=== PATIENT | female | born 2000 | race Caucasian/White ===

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

== ENCOUNTER 2020-02-21 19:23 | Emergency (ER) | payer MEDICAID, SELFPAY ==
[2020-02-21 19:30] VITALS: BP 145/89; PULSE 91; RESP 18; TEMP 36.6; O2SAT 98; BMI 32.1
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
[2020-02-21 19:53] VITALS: BP 145/89; PULSE 91; RESP 18; TEMP 36.6; O2SAT 98
== END 2020-02-21 19:55 | disposition home or self-care (01) ==
PROVIDERS: Emergency Provider Nurse Practitioner
DX: Z20.828 Contact with and (suspected) exposure to other viral communicable diseases (principal)
CPT/HCPCS: 99201; U0003

== ENCOUNTER 2020-11-22 15:36 | Emergency (ER) | payer MEDICAID, SELFPAY ==
[2020-11-22 16:15] VITALS: BP 138/77; PULSE 78; RESP 18; TEMP 37; O2SAT 100; BMI 35.2
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
--- NOTE | 2020-11-22 18:12 | PC.NURSE ---
Pt come to nurses station and stated that she wanted her d/c papers and was ready to leave. Pt signed out AMA
[2020-11-22 18:23] VITALS: BP 0/0; PULSE 0; RESP 0; TEMP -17.7; TEMP 0; O2SAT 0
== END 2020-11-22 18:25 | disposition left against medical advice (07) ==
PROVIDERS: Emergency Provider Nurse Practitioner Family
DX: S13.4XXA Sprain of ligaments of cervical spine, initial encounter (principal); S23.3XXA Sprain of ligaments of thoracic spine, initial encounter; V43.52XA Car driver injured in collision with other type car in traffic accident, initial encounter; Y92.414 Local residential or business street as the place of occurrence of the external cause
CPT/HCPCS: 99202; G0463

== ENCOUNTER 2021-02-09 15:57 | Emergency (ER) | payer MEDICAID, SELFPAY ==
[2021-02-09 17:25] VITALS: BP 129/84; PULSE 107; RESP 18; TEMP 37.3; O2SAT 100; BMI 34.0
--- NOTE | 2021-02-09 17:34 | HMH.EDUTC ---
[facility] [place] Disposition Clinical Impression: Viral syndrome, Exposure to COVID-19 virus Disposition: Home, Self-Care Condition on Discharge: Good Instructions: DI for COVID-19 (Suspected or Confirmed ), Preventing the Spread of Coronavirus Discharge Instructions Additional Instructions: Drink plenty of fluids. Take tylenol or ibuprofen for pain or fever. Take the medications as directed. Follow up with your regular doctor. GO TO THE ER FOR ANY WORSENING SYMPTOMS Quarantine until you know the results of your covid-19 test. If it is positive, the health department should call you and give you further instructions about your length of Quarantine and other things. Notify your school or workplace of your results and follow their instructions regarding return to work/school. Prescriptions: Brompheniramine/Pseudoephed/Dm [Bromfed Dm Cough Syrup] 5 ml PO Q6HP PRN #240 ml PRN Reason: Cough Transmission Status: Received by [id number] Ondansetron [Zofran 4mg ODT] 4 mg PO Q8HP PRN #12 tab PRN Reason: Nausea Transmission Status: Received by [id number] Referrals: Provider,Referral, [Primary Care Provider] - Forms: Work/School Release Time of Disposition: 18:11 Medical Decision Making - Medical Records Medical records reviewed: No: I reviewed the patient's medical records. - Tadeo Inquiry Pt receiving controlled substance: No Vital Signs: 02/09/21 17:25 02/09/21 18:05 Temperature 99.1 F 99.1 F Temperature Source Oral Pulse Rate 107 H Pulse Rate [Left] 107 H Respiratory Rate 18 18 Blood Pressure 129/84 Blood Pressure [Right Arm] 129/84 Blood Pressure Mean [Right Arm] 99 02 Sat by Pulse Oximetry 100 - Lab Data Lab results reviewed: Yes: I reviewed the patient's lab results. Lab Results 02/09/21 18:03: Strep Scn Rapid Clinic Negative Orders (Tests/Meds): ORDERS Category Date Time Status Covid-19 Nasal PCR ([facility]) Routine Lab 02/09/21 17:26 Received Strep Screen Confirmation Stat Micro 02/09/21 18:03 Received [facility] HPI - General Stated complaint: covid symptoms/test Time Seen by Provider: 02/09/21 17:34 Mode of Arrival: Ambulatory Source of Information: Patient Limitations: No Limitations Description of Symptoms (Recalled from Triage Doc. by RN): pt c/o nasal drainage and soa. HEENT Symptoms (Recalled from RN notes): Yes (nasal drainage) Resp Symptoms (Recalled from RN notes): No Skin Symptoms (Recalled from RN notes): No MS Symptoms (Recalled from RN notes): No Functional Status (Recalled from RN notes): wnl - History of Present Illness Provider Complaint: She states that she has felt bad since last night. She has had body aches, fever, chills, sore throat and nausea. She was exposed to covid-19 about 5 days ago. She has not been vaccinated against covid-19. - Related Data Previous Rx's Medication Instructions Recorded Brompheniramine/Pseudoephed/Dm 5 ml PO Q6HP PRN #240 ml 02/09/21 [Bromfed Dm Cough Syrup] Ondansetron [Zofran 4mg ODT] 4 mg PO Q8HP PRN #12 tab 02/09/21 Allergies Allergy/AdvReac Type Severity Reaction Status Date / Time No Known Allergies Allergy Verified 04/11/19 12:38 - Worker's Comp Is this a Worker's Comp case?: No [facility] History - Hepatitis A Screen Drug use history?: No High risk sexual behaviors?: No History of sexually transmitted infection?: No Currently employed?: No Childcare worker?: No Do you have indoor plumbing?: Yes Do you have electricity?: Yes Attestation statement:: This patient has been screened for Hepatitis A risk factors. I have reviewed the patient's past medical history: Yes Medical History: Reports:: Migraine Denies:: Anxiety, Asthma, Depression, Seizures Other Surgeries: Yes: No Previous Surgery Amputation: No Fractures: No - Social History Smoking Status: Former smoker Tobacco Type: smokeless tobacco Alcohol Intake: never Substance Use Type: denies use
[2021-02-09 18:04] LABS: UTC Strep Screen (Rapid) Negative (Negative)
[2021-02-09 18:05] VITALS: BP 129/84; PULSE 107; RESP 18; TEMP 37.3
== END 2021-02-09 18:15 | disposition home or self-care (01) ==
PROVIDERS: Emergency Provider Nurse Practitioner Family
DX: B34.9 Viral infection, unspecified (principal); Z20.822 Contact with and (suspected) exposure to COVID-19; G43.709 Chronic migraine without aura, not intractable, without status migrainosus
CPT/HCPCS: 87880; 99203; C9803; G0463; U0003; U0005

== ENCOUNTER → 2021-03-26 11:46 | Outpatient (CLI) | payer MEDICAID, SELFPAY | PROVIDERS: Visit Provider Nurse Practitioner | DX: U07.1 COVID-19 (principal) | CPT/HCPCS: C9803; U0003; U0005 ==

== ENCOUNTER 2021-10-04 14:25 | Emergency (ER) | payer MEDICAID, SELFPAY ==
[2021-10-04 14:42] VITALS: BP 130/53; PULSE 64; RESP 17; TEMP 37.2; O2SAT 96; BMI 31.2
--- NOTE | 2021-10-04 14:44 | HMH.EDUTC ---
[facility] [place] Disposition Clinical Impression: Exposure to COVID-19 virus, Viral syndrome Disposition: Home, Self-Care Condition on Discharge: Good Instructions: DI for COVID-19 (Suspected or Confirmed ), Preventing the Spread of Coronavirus Discharge Instructions Additional Instructions: Drink plenty of fluids. Take tylenol or ibuprofen for pain or fever. Take the medications as directed. Follow up with your regular doctor. GO TO THE ER FOR ANY WORSENING SYMPTOMS Quarantine until you know the results of your covid-19 test. Notify your school or workplace of your results and follow their instructions regarding return to work/school. Prescriptions: Brompheniramine/Pseudoephed/Dm [Bromfed Dm Cough Syrup] 5 ml PO Q6HP PRN #240 ml PRN Reason: Cough Transmission Status: Received by [id number] Ondansetron [Zofran 4mg ODT] 4 mg PO Q8HP PRN #12 tab PRN Reason: Nausea Transmission Status: Received by [id number] Referrals: Provider,Referral, [Primary Care Provider] - Forms: Work/School Release Time of Disposition: 14:59 Medical Decision Making - Medical Records Medical records reviewed: No: I reviewed the patient's medical records. - Tadeo Inquiry Pt receiving controlled substance: No Vital Signs: 10/04/21 14:42 10/04/21 15:00 Temperature 98.9 F 98.9 F Temperature Source Oral Pulse Rate 64 Pulse Rate [Left] 64 Respiratory Rate 17 17 Blood Pressure 130/53 L Blood Pressure [Right Arm] 130/53 L Blood Pressure Mean [Right Arm] 78 02 Sat by Pulse Oximetry 96 - Lab Data Lab results reviewed: Yes: I reviewed the patient's lab results. [facility] [place] HPI - General Stated complaint: covid exposure, h/a, bilateral ear pain, congest. Time Seen by Provider: 10/04/21 14:46 - History of Present Illness Provider Complaint: She is here with complaints of having bilateral ear pain and sinus congestion for the past 2 days. - Related Data Previous Rx's Medication Instructions Recorded Brompheniramine/Pseudoephed/Dm 5 ml PO Q6HP PRN #240 ml 02/09/21 [Bromfed Dm Cough Syrup] Ondansetron [Zofran 4mg ODT] 4 mg PO Q8HP PRN #12 tab 02/09/21 Brompheniramine/Pseudoephed/Dm 5 ml PO Q6HP PRN #240 ml 10/04/21 [Bromfed Dm Cough Syrup] Ondansetron [Zofran 4mg ODT] 4 mg PO Q8HP PRN #12 tab 10/04/21 Allergies Allergy/AdvReac Type Severity Reaction Status Date / Time No Known Allergies Allergy Verified 10/04/21 14:45 [facility] History - Hepatitis A Screen Attestation statement:: This patient has been screened for Hepatitis A risk factors. I have reviewed the patient's past medical history: Yes Medical History: Reports:: Migraine Denies:: Anxiety, Asthma, Depression, Seizures Other Surgeries: Yes: No Previous Surgery Amputation: No Fractures: No - Social History Smoking Status: Former smoker Tobacco Type: smokeless tobacco Alcohol Intake: never Substance Use Type: denies use Occupational Status: other Housing: house Household Members: family - Psychiatric History Pschychiatric History:: Denies:: Anxiety, Depression Family Hx:: Heart Attack, Cancer ROS Obtained: Yes All systems reviewed & no additional complaints - Constitutional Constitutional: Reports as per HPI - Eyes Eyes: Denies eye discharge - ENT Ears, Nose, Mouth, and Throat: Reports as per HPI - Cardiovascular Cardiovascular: Denies chest pain - Respiratory Respiratory: Denies chest congestion, Reports cough Physical Exam - General General appearance: alert, in no apparent distress - Head Head exam: atraumatic, normocephalic, normal inspection - Eye Eye exam: Present: normal appearance, PERRL, EOMI - ENT ENT exam: Present: normal exam, normal oropharynx, mucous membranes moist, TM's normal bilaterally, normal external ear exam - Neck Neck exam: Present: normal inspection, full ROM, trachea midline. Absent: meningismus, lymphadenopathy - Chest Chest inspe
[2021-10-04 15:00] VITALS: BP 130/53; PULSE 64; RESP 17; TEMP 37.2
== END 2021-10-04 15:07 | disposition home or self-care (01) ==
PROVIDERS: Emergency Provider Nurse Practitioner Family
DX: Z20.822 Contact with and (suspected) exposure to COVID-19 (principal); B34.9 Viral infection, unspecified
CPT/HCPCS: 99212; C9803; G0463; U0003; U0005

== ENCOUNTER 2022-01-06 12:04 | Emergency (ER) | payer MEDICAID, SELFPAY ==
[2022-01-06 13:25] VITALS: BP 121/67; PULSE 85; RESP 17; TEMP 37.4; O2SAT 99; BMI 32.0
[2022-01-06 13:30] LABS: UTC Influenza A Antigen Negative (Negative); UTC Strep Screen (Rapid) Negative (Negative)
[2022-01-06 13:31] LABS: UTC Influenza B Antigen Negative (Negative)
--- NOTE | 2022-01-06 13:42 | EXP.UTC ---
Discharge Plan Disposition Patient Disposition: Home, Self-Care Condition: Good Prescriptions Prescriptions: New prednisone 10 mg tablet 10 mg PO BID 3 Days Qty: 6 0RF azithromycin [Zithromax] 250 mg tablet 250 mg PO UD DOSE PK Qty: 6 0RF Rx Instructions: Take two (2) tablets today, then one (1) tablet days #2 thru #5 lmqwotbcudobxlp-vxqijvdvy-WU [Bromfed DM] 2-30-10 mg/5 mL Syrup 5 ml PO Q6H PRN (Reason: Cough) Qty: 240 0RF No Action njhujbefjnfkain-zsxpynknv-FX 118 ML syrup 5 ml PO Q6HP PRN (Reason: Cough) Qty: 240 0RF ondansetron 4 MG tablet,disintegrating 4 mg PO Q8HP PRN (Reason: Nausea) Qty: 12 0RF kvadymacevohjlx-imteivhom-ZJ 118 ML syrup 5 ml PO Q6HP PRN (Reason: Cough) Qty: 240 0RF ondansetron 4 MG tablet,disintegrating 4 mg PO Q8HP PRN (Reason: Nausea) Qty: 12 0RF Referrals Follow up/Referrals: Provider,Referral, MD [Primary Care Provider] - See instructions Activity Restrictions/Add. Instructions Additional Instructions/Restrictions: Drink plenty of fluids. Take tylenol or ibuprofen for pain or fever. Take the medications as directed. Follow up with your regular doctor. GO TO THE ER FOR ANY WORSENING SYMPTOMS Clinical Impressions Clinical Impression: Pharyngitis, Acute bronchitis Stand Alone Forms Stand Alone Forms: Work/School Release Instructions Patient Instructions: DI for Strep Throat, Strep Throat Discharge ED Provider: Rahul Matt [facility] General Stated complaint: Fever, ear pain, cough, vomitting Mode of Arrival: Ambulatory Source of Information: Patient Limitations: No Limitations Time Seen by Provider: 01/06/22 13:41 Description of Symptoms (Recalled from Triage Doc. by RN): pt comes in with c/o bilateral ear ache,fever, cough, vomitting, nausea. symptoms began yesterday HEENT Symptoms (Recalled from RN notes): Yes Resp Symptoms (Recalled from RN notes): Yes Skin Symptoms (Recalled from RN notes): No MS Symptoms (Recalled from RN notes): No Functional Status (Recalled from RN notes): n/a Related Data Previous Rx's Medication Instructions Recorded xfwfreriapimcwf-lngmpplkuqjqnpl-QL 5 ml PO Q6HP PRN Cough #240 mL 02/09/21 2 mg-30 mg-10 mg/5 mL oral syrup ondansetron 4 mg disintegrating 4 mg PO Q8HP PRN Nausea #12 tabs 02/09/21 tablet fvzbhqtxettqzpf-otalnjkvasdirky-NI 5 ml PO Q6HP PRN Cough #240 mL 10/04/21 2 mg-30 mg-10 mg/5 mL oral syrup ondansetron 4 mg disintegrating 4 mg PO Q8HP PRN Nausea #12 tabs 10/04/21 tablet azithromycin 250 mg tablet 250 mg PO UD DOSE PK #6 tabs 01/06/22 (Zithromax) koywphawukfkpdu-mteuqxuzvwhayhd-XY 5 ml PO Q6H PRN Cough #240 mL 01/06/22 2 mg-30 mg-10 mg/5 mL oral syrup (Bromfed DM) prednisone 10 mg tablet 10 mg PO BID 3 days #6 tabs 01/06/22 Allergies Allergy/AdvReac Type Severity Reaction Status Date / Time No Known Allergies Allergy Verified 01/06/22 13:27 Worker's Comp Is this a Worker's Comp case?: No PFSH PFSH Social History Smoking Status: Former smoker alcohol intake: never substance use type: denies use current occupational status: other Travel in the last 8 weeks: None household members: family housing: house ROS Obtained: Yes All systems reviewed & no additional complaints except as documented Constitutional Constitutional: Reports chills and Reports fever(s) Eyes Eyes: Denies eye discharge ENT Ears, Nose, Mouth, and Throat: Reports as per HPI Cardiovascular Cardiovascular: Denies chest pain Respiratory Respiratory: Denies chest congestion and Reports cough Gastrointestinal Gastrointestingal: Reports nausea; Denies abdominal pain, constipation, cramping, diarrhea or vomiting Musculoskeletal Musculoskeletal: Denies arthralgias Integumentary/Breasts Skin/Breast: Denies rash Neurologic Neurologic: Denies paresthesias Physical Exam General General appearance: alert and in
[2022-01-06 14:08] VITALS: BP 121/67; PULSE 85; RESP 17; TEMP 37.4
== END 2022-01-06 14:09 | disposition home or self-care (01) ==
PROVIDERS: Emergency Provider Nurse Practitioner Family
DX: J20.9 Acute bronchitis, unspecified (principal)
CPT/HCPCS: 87804; 87880; 99212; G0463

== ENCOUNTER 2022-01-12 20:07 | Emergency (ER) | payer MEDICAID, SELFPAY ==
[2022-01-12 20:08] VITALS: BP 95/77; PULSE 77; RESP 16; TEMP 36.7; O2SAT 98; BMI 31.9
--- NOTE | 2022-01-12 21:40 | XR_ITS ---
PROCEDURE INFORMATION: Exam: XR Chest Exam date and time: 01/12/2022 9:38 PM Age: 21 years old Clinical indication: Cough; Additional info: Congestion TECHNIQUE: Imaging protocol: Radiologic exam of the chest. Views: 2 views. COMPARISON: No relevant prior studies available. FINDINGS: Lungs: No consolidation. Pleural spaces: No pneumothorax. Heart/Mediastinum: No cardiomegaly. Bones/joints: No acute fracture. IMPRESSION: No acute findings.
[2022-01-12 21:44] LABS: Coronavirus 19, PCR Not Detected (NotDetected); Influenza A, PCR Not Detected (NotDetected); Influenza B, PCR Not Detected (NotDetected)
[2022-01-12 22:05] LABS: Strep Scrn Group A (Rapid) Negative (Negative)
--- NOTE | 2022-01-12 22:49 | HMH.EDURI ---
Discharge Plan Disposition Patient Disposition: Home, Self-Care Prescriptions Prescriptions: New benzonatate 100 mg Capsule 100 mg PO Q8H Qty: 14 0RF No Action prednisone 10 mg tablet 10 mg PO BID 3 Days Qty: 6 0RF azithromycin [Zithromax] 250 mg tablet 250 mg PO UD DOSE PK Qty: 6 0RF Rx Instructions: Take two (2) tablets today, then one (1) tablet days #2 thru #5 csbngxkfkgxttge-oxdiigpun-KB [Bromfed DM] 2-30-10 mg/5 mL Syrup 5 ml PO Q6H PRN (Reason: Cough) Qty: 240 0RF pjycbxtdpbtboyp-pibkngnwt-JT 118 ML syrup 5 ml PO Q6HP PRN (Reason: Cough) Qty: 240 0RF ondansetron 4 MG tablet,disintegrating 4 mg PO Q8HP PRN (Reason: Nausea) Qty: 12 0RF qmqgyfwnnekxdee-rsxuixscx-KR 118 ML syrup 5 ml PO Q6HP PRN (Reason: Cough) Qty: 240 0RF ondansetron 4 MG tablet,disintegrating 4 mg PO Q8HP PRN (Reason: Nausea) Qty: 12 0RF Referrals Follow up/Referrals: Provider,Referral, MD [Primary Care Provider] - See instructions Clinical Impressions Clinical Impression: Upper respiratory infection Instructions Patient Instructions: DI for Viral Upper Respiratory Infection -- Adult Discharge ED Provider: Richard Armenta URI/Sore Throat HPI General Chief Complaint: Upper Respiratory Infection Stated Complaint: sore throat, cough,SOB Time Seen by Provider: 01/12/22 22:49 Mode of Arrival: Ambulatory Source of Information: Patient Limitations: No Limitations Description of Symptoms (Recalled from ER Triage Doc. by RN): pt was seen last week in [facility] and given meds and feels not better. pt c/o cough, sore throat, fever, body aches History of Present Illness HPI Narrative: seen in the [facility] and on steroids and z venus and has persistent cough and achey Complaint: fever, cough and sore throat Onset (ago): day(s) Duration: intermittent Severity: moderate Able to tolerate fluids by mouth: Yes Associated symptoms: denies other symptoms Treatments prior to arrival: acetaminophen and antibiotics Related Data Previous Rx's Medication Instructions Recorded pdqaghhwzingxlz-uewpcuxjzhdqymq-HP 5 ml PO Q6HP PRN Cough #240 mL 02/09/21 2 mg-30 mg-10 mg/5 mL oral syrup ondansetron 4 mg disintegrating 4 mg PO Q8HP PRN Nausea #12 tabs 02/09/21 tablet gnxojnthtwkkycn-oaqiiegdpbbiqhm-QF 5 ml PO Q6HP PRN Cough #240 mL 10/04/21 2 mg-30 mg-10 mg/5 mL oral syrup ondansetron 4 mg disintegrating 4 mg PO Q8HP PRN Nausea #12 tabs 10/04/21 tablet azithromycin 250 mg tablet 250 mg PO UD DOSE PK #6 tabs 01/06/22 (Zithromax) tzrxgruxkicyhwc-ztqsmtkkwxaxykh-YH 5 ml PO Q6H PRN Cough #240 mL 01/06/22 2 mg-30 mg-10 mg/5 mL oral syrup (Bromfed DM) prednisone 10 mg tablet 10 mg PO BID 3 days #6 tabs 01/06/22 benzonatate 100 mg capsule 100 mg PO Q8H #14 caps 01/12/22 Allergies Allergy/AdvReac Type Severity Reaction Status Date / Time No Known Allergies Allergy Verified 01/06/22 13:27 PFSH PFSH Social History Smoking Status: Never smoker alcohol intake: never substance use type: denies use current occupational status: other Travel in the last 8 weeks: None household members: family housing: house ROS Obtained: Yes All systems reviewed & no additional complaints except as documented Physical Exam General General appearance: alert Head Head exam: normocephalic Eye Eye exam: Present PERRL and EOMI ENT ENT exam: Absent mucous membranes moist Neck Neck exam: Present trachea midline Respiratory Respiratory exam: Present normal lung sounds bilaterally; Absent respiratory distress Cardiovascular Cardiovascular exam: Present regular rate Abdominal Exam Abdominal exam: Present soft Extremities Exam Extremities exam: Present full ROM Neurological Exam Neurological exam: Present alert, oriented X3 and CN II-XII intact Psychiatric Psychiatric exam: Present normal affect Skin Skin exam: Absent rash Medical Decision Making M
--- NOTE | 2022-01-12 22:56 | PC.NURSE ---
Lab advised 20 minutes remaining on respiratory swab
[2022-01-12 23:02] VITALS: BP 100/74; PULSE 69; RESP 16; TEMP 36.6; O2SAT 98
== END 2022-01-12 23:03 | disposition home or self-care (01) ==
PROVIDERS: Emergency Provider Emergency Medicine
DX: J06.9 Acute upper respiratory infection, unspecified (principal)
CPT/HCPCS: 71046; 87430; 99283; C9803; U0003; U0005

== ENCOUNTER 2022-03-02 11:52 | Emergency (ER) | payer MEDICAID, SELFPAY ==
[2022-03-02 11:53] VITALS: BP 146/88; PULSE 90; RESP 16; TEMP 36.6; O2SAT 95; BMI 32.1
--- NOTE | 2022-03-02 12:14 | PC.NURSE ---
Checked on patient, and obtained vital signs. Patient aware that we are waiting on beds to open up at this time. She has no other needs at this time and is sitting back in waiting area. Vitals put into chart
[2022-03-02 12:15] VITALS: BP 146/88; PULSE 90; TEMP 36.6; O2SAT 95
[2022-03-02 12:16] VITALS: BMI 32.1
--- NOTE | 2022-03-02 13:07 | PC.NURSE ---
pt ambulatory from waiting room to restroom, without complications
[2022-03-02 13:27] LABS: Microscopic, Urine URINE MICROSCOPIC (MICROSCOPIC)
[2022-03-02 13:30] VITALS: BP 141/92; PULSE 78; O2SAT 100
[2022-03-02 13:32] LABS: Bilirubin,Urine Negative (Negative); Blood, Urine 1+ (Negative); Color,Urine YELLOW (Yellow); Glucose,Urine (UA) Negative (Negative); Ketones,Urine 1+ (Negative); Leukocyte Esterase,Urine Negative (Negative); Nitrate,Urine Negative (Negative); PH,Urine 5.5 (5.0-8.5); Protein,Urine 1+ (Negative); Specific Gravity, Urine >= 1.030 (1.005-1.030); Urobilinogen,Urine 0.2 EU/dl (0.2)
[2022-03-02 13:32] LABS: Basophils % 0.2 % (0.1-2.0); Eosinophils % 0.2 % (0.1-12.0); Hematocrit 43.9 % (37.0-47.0); Hemoglobin 14.6 g/dL (12.2-16.2); Lymphocytes # 0.5 K/mm3 (0.7-4.5); Lymphocytes % 2.9 % (10-50); Mean Corpuscular HGB Conc 33.3 g/dL (31.8-35.4); Mean Corpuscular Volume 83.9 fl (81-99); Mean Platelet Volume 8.2 fl (7.4-10.4); Monocytes # 0.6 K/mm3 (0.1-1.0); Monocytes % 3.3 % (1.7-9.3); Neutrophils # 16.7 K/mm3 (1.8-7.8); Neutrophils % 93.4 % (37.0-80.0); Platelet Count 523 K/mm3 (142-424); Red Blood Count 5.24 M/mm3 (4.20-5.40); Red Cell Distribution Width 13.3 % (11.5-17.5); White Blood Count 17.9 K/mm3 (4.8-10.8)
[2022-03-02 13:33] LABS: Appearance,Urine Cloudy (Clear); Urine Pregnancy, HCG Qual. Negative (Negative)
[2022-03-02 13:34] LABS: Chloride 102 mmol/L (98-107); Potassium 4.2 mmoL/L (3.5-5.1); Sodium 141 mmol/L (136-145)
[2022-03-02 13:35] LABS: MANUAL DIFFERENTIAL MANUAL DIFFERENTIAL (MANUAL DIFF)
[2022-03-02 13:36] LABS: Alanine Aminotransferase 26 U/L (12-78); Alkaline Phosphatase 84 U/L (38-126); Aspartate Amino Transferase 33 U/L (14-36); Bilirubin,Total 0.9 mg/dl (0.2-1.3); Blood Urea Nitrogen 21 mg/dl (7-17); Creatinine Clearance Estimated 135 mL/min (50-200); Estimated Glomerular Filt Rate 91 ml/min (>60); GFR (African American) 110 ML/MIN (>60); Lipase 14 U/L (23-300)
[2022-03-02 13:37] LABS: Albumin Level 5.3 g/dl (3.5-5.0); Albumin/Globulin Ratio 1.6 (1.1-1.8); Anion Gap 17.2 mEq/L (5-15); Calcium 10.1 mg/dl (8.4-10.2); Carbon Dioxide 26 mmol/L (22.0-30.0); Globulin 3.3 g/dL (1.3-3.2); Glucose 135 mg/dl (74-100); Lactic Acid 1.6 mmol/L (0.7-2.1); Total Protein,Serum 8.6 g/dl (6.3-8.2)
[2022-03-02 13:47] LABS: RBC,Urine Occasional #/hpf (0-3); WBC,Urine Occasional #/hpf (0-3)
[2022-03-02 13:48] LABS: Amorphous Sediment,Urine 3+ /lpf; Bacteria,Urine 2+ /lpf; Squamous Epithelial Cell,Urine Occasional #/hpf (0-5)
[2022-03-02 14:00] LABS: Lymphocytes % 6 % (10-50); Monocytes % 4 % (2-9); Neutrophils % 90 % (42-76); Platelet Estimate Slight Increase; RBC Morphology Normal; Total Cells Counted 100
--- NOTE | 2022-03-02 14:19 | HMH.EDGENADL ---
Discharge Plan Disposition Patient Disposition: Home, Self-Care Condition: Good Prescriptions Prescriptions: New ondansetron 4 mg tablet,disintegrating 4 mg PO Q6H PRN (Reason: nausea and vomiting) Qty: 10 0RF Rx Instructions: Do not combine with other nausea medications. No Action prednisone 10 mg tablet 10 mg PO BID 3 Days Qty: 6 0RF azithromycin [Zithromax] 250 mg tablet 250 mg PO UD DOSE PK Qty: 6 0RF Rx Instructions: Take two (2) tablets today, then one (1) tablet days #2 thru #5 eunifebgttyehgh-pebdutpcj-OC [Bromfed DM] 2-30-10 mg/5 mL Syrup 5 ml PO Q6H PRN (Reason: Cough) Qty: 240 0RF benzonatate 100 mg Capsule 100 mg PO Q8H Qty: 14 0RF mafoznrjvgcowjl-olfzjedoc-KV 118 ML syrup 5 ml PO Q6HP PRN (Reason: Cough) Qty: 240 0RF ondansetron 4 MG tablet,disintegrating 4 mg PO Q8HP PRN (Reason: Nausea) Qty: 12 0RF xbceignmtgiuoql-ykvzwkgyj-EW 118 ML syrup 5 ml PO Q6HP PRN (Reason: Cough) Qty: 240 0RF ondansetron 4 MG tablet,disintegrating 4 mg PO Q8HP PRN (Reason: Nausea) Qty: 12 0RF Referrals Follow up/Referrals: Provider,Referral, MD [Primary Care Provider] - See instructions Activity Restrictions/Add. Instructions Additional Instructions/Restrictions: At this time was felt you are safe to be discharged home. If new or worsening symptoms please do not hesitate to return to the emergency department. Please take your medication as prescribed. Clinical Impressions Clinical Impression: Acute viral syndrome Discharge ED Provider: Markus Moncada General Adult HPI General Chief complaint: Nausea/Vomiting/Diarrhea Stated complaint: stomach pain, vomiting, diarrhea Time Seen by Provider: 03/02/22 14:00 Mode of Arrival: Ambulatory Source of Information: Patient Limitations: No Limitations Description of Symptoms (Recalled from ER Triage Doc. by RN): Pt reports v/d that began yesterday, reports pain in epigastric area, describes pain as squeezing and constant in nature. History of Present Illness HPI narrative: Patient is a 21-year-old female with no pertinent past medical history who presents emergency department for evaluation of vomiting, diarrhea. Onset was acute, occurring since last night, profuse nonbloody vomiting and diarrhea with limited ability to tolerate p.o. Patient was recently at a [employer] green party, no significant alcohol intake. Patient has epigastric cramping, no other acute complaints at this time. Related Data Previous Rx's Medication Instructions Recorded ddatrzdtkxyskvu-pbjgkjhpmrwhntq-AG 5 ml PO Q6HP PRN Cough #240 mL 02/09/21 2 mg-30 mg-10 mg/5 mL oral syrup ondansetron 4 mg disintegrating 4 mg PO Q8HP PRN Nausea #12 tabs 02/09/21 tablet gfypgjhqdcuhtrt-trdglxnhnjllvhw-WI 5 ml PO Q6HP PRN Cough #240 mL 10/04/21 2 mg-30 mg-10 mg/5 mL oral syrup ondansetron 4 mg disintegrating 4 mg PO Q8HP PRN Nausea #12 tabs 10/04/21 tablet azithromycin 250 mg tablet 250 mg PO UD DOSE PK #6 tabs 01/06/22 (Zithromax) ozvkllzqtlijvwj-scdmtuyuejnpooy-MO 5 ml PO Q6H PRN Cough #240 mL 01/06/22 2 mg-30 mg-10 mg/5 mL oral syrup (Bromfed DM) prednisone 10 mg tablet 10 mg PO BID 3 days #6 tabs 01/06/22 benzonatate 100 mg capsule 100 mg PO Q8H #14 caps 01/12/22 ondansetron 4 mg disintegrating 4 mg PO Q6H PRN nausea and 03/02/22 tablet vomiting #10 tabs Allergies Allergy/AdvReac Type Severity Reaction Status Date / Time No Known Allergies Allergy Verified 01/06/22 13:27 [facility] Disclaimer: The information contained in this section may have been updated after the patient was seen, as this information can be updated by other users. Social History Smoking Status: Never smoker alcohol intake: never substance use type: denies use current occupational status: other Travel in the last 8 weeks: None household members: family housing: house ROS Obtained: Yes Syste
--- NOTE | 2022-03-02 14:31 | PC.NURSE ---
INFORMED THAT PATIENT VOMITED AFTER GI COCKTAIL
--- NOTE | 2022-03-02 15:51 | PC.NURSE ---
room 10 was awake and given some water and some crackers.
--- NOTE | 2022-03-02 17:10 | PC.NURSE ---
pt tolerated crackers and water well, ER notified.
[2022-03-02 17:22] VITALS: BP 130/84; PULSE 111; RESP 16; TEMP 36.7; O2SAT 100
== END 2022-03-02 17:25 | disposition home or self-care (01) ==
PROVIDERS: Emergency Provider Emergency Medicine
DX: R10.13 Epigastric pain (principal); R11.2 Nausea with vomiting, unspecified; R19.7 Diarrhea, unspecified; R05.9 Cough, unspecified; D72.829 Elevated white blood cell count, unspecified; Z79.52 Long term (current) use of systemic steroids; Z79.899 Other long term (current) drug therapy
CPT/HCPCS: 80053; 81001; 81025; 83605; 83690; 85007; 85025; 87086; 96361; 96374; 99284; J2405

== ENCOUNTER 2022-04-16 21:12 | Emergency (ER) | payer MEDICAID, SELFPAY ==
[2022-04-16 21:14] VITALS: BP 107/61; PULSE 69; RESP 16; TEMP 36.6; O2SAT 100; BMI 32.0
--- NOTE | 2022-04-16 21:44 | XR_ITS ---
PROCEDURE INFORMATION: Exam: XR Right Wrist Exam date and time: 04/16/2022 9:48 PM Age: 21 years old Clinical indication: Patient HX: Right wrist pain, nki. Painful to move TECHNIQUE: Imaging protocol: Radiologic exam of the Right wrist. Views: 3 or more views. COMPARISON: No relevant prior studies available. FINDINGS: Bones/joints: No acute fracture or dislocation. Soft tissues: Normal. IMPRESSION: No acute fracture or dislocation.
--- NOTE | 2022-04-16 22:05 | HMH.EDEXTP ---
Discharge Plan Disposition Patient Disposition: Home, Self-Care Prescriptions Prescriptions: New meloxicam 15 mg tablet 15 mg PO DAILY Qty: 10 0RF No Action prednisone 10 mg tablet 10 mg PO BID 3 Days Qty: 6 0RF azithromycin [Zithromax] 250 mg tablet 250 mg PO UD DOSE PK Qty: 6 0RF Rx Instructions: Take two (2) tablets today, then one (1) tablet days #2 thru #5 ziqlaxpvpsijlli-yarigrksp-PR [Bromfed DM] 2-30-10 mg/5 mL Syrup 5 ml PO Q6H PRN (Reason: Cough) Qty: 240 0RF benzonatate 100 mg Capsule 100 mg PO Q8H Qty: 14 0RF ondansetron 4 mg tablet,disintegrating 4 mg PO Q6H PRN (Reason: nausea and vomiting) Qty: 10 0RF Rx Instructions: Do not combine with other nausea medications. imlqtybnjxjopkw-kptrsuubv-AF 118 ML syrup 5 ml PO Q6HP PRN (Reason: Cough) Qty: 240 0RF ondansetron 4 MG tablet,disintegrating 4 mg PO Q8HP PRN (Reason: Nausea) Qty: 12 0RF llvtsxywmvdelbj-irrnxgdrz-VR 118 ML syrup 5 ml PO Q6HP PRN (Reason: Cough) Qty: 240 0RF ondansetron 4 MG tablet,disintegrating 4 mg PO Q8HP PRN (Reason: Nausea) Qty: 12 0RF Clinical Impressions Clinical Impression: Right wrist pain Instructions Patient Instructions: DI for Wrist Strain Discharge ED Provider: Kathi (ED)Richard Extremity Problem HPI General Chief complaint: Extremity Injury, Upper Stated complaint: AO 04/14 injured R wrist Time Seen by Provider: 04/16/22 22:05 Mode of Arrival: Ambulatory Limitations: No Limitations Description of Symptoms (Recalled from ER Triage Doc. by RN): pt c/o rt wrist pain that started a week ago. pt denies any accident or trauma. History of Present Illness HPI Narrative: rt wrist pain with no rash or trauma but increased with use - not preg - MD Complaint: extremity pain Onset (ago): day(s) Consistency: intermittent Location: right and upper extremity Exacerbating factors: range of motion Associated symptoms: denies other symptoms Related Data Previous Rx's Medication Instructions Recorded ubaxmropcictdlm-rweqxtrzukppylz-LI 5 ml PO Q6HP PRN Cough #240 mL 02/09/21 2 mg-30 mg-10 mg/5 mL oral syrup ondansetron 4 mg disintegrating 4 mg PO Q8HP PRN Nausea #12 tabs 02/09/21 tablet tstpmmuwlfefrnp-jfjcjxrccojqnmp-CS 5 ml PO Q6HP PRN Cough #240 mL 10/04/21 2 mg-30 mg-10 mg/5 mL oral syrup ondansetron 4 mg disintegrating 4 mg PO Q8HP PRN Nausea #12 tabs 10/04/21 tablet azithromycin 250 mg tablet 250 mg PO UD DOSE PK #6 tabs 01/06/22 (Zithromax) ztfkqabphvvuucx-xfohgarfwpomyyf-ZH 5 ml PO Q6H PRN Cough #240 mL 01/06/22 2 mg-30 mg-10 mg/5 mL oral syrup (Bromfed DM) prednisone 10 mg tablet 10 mg PO BID 3 days #6 tabs 01/06/22 benzonatate 100 mg capsule 100 mg PO Q8H #14 caps 01/12/22 ondansetron 4 mg disintegrating 4 mg PO Q6H PRN nausea and 03/02/22 tablet vomiting #10 tabs meloxicam 15 mg tablet 15 mg PO DAILY #10 tabs 04/16/22 Allergies Allergy/AdvReac Type Severity Reaction Status Date / Time No Known Allergies Allergy Verified 01/06/22 13:27 [facility] Disclaimer: The information contained in this section may have been updated after the patient was seen, as this information can be updated by other users. Social History Smoking Status: Never smoker alcohol intake: never substance use type: denies use current occupational status: other Travel in the last 8 weeks: None household members: family housing: house ROS Obtained: Yes All systems reviewed & no additional complaints except as documented Physical Exam General General appearance: alert Head Head exam: normocephalic Eye Eye exam: Present PERRL and EOMI ENT ENT exam: Present mucous membranes moist Neck Neck exam: Present trachea midline Respiratory Respiratory exam: Absent respiratory distress Cardiovascular Cardiovascular exam: Present regular rate Expanded Upper Extremity Exam Right: For
--- NOTE | 2022-04-16 22:07 | PC.NURSE ---
Second trop drawn and sent to lab. No needs or complaints voiced.
[2022-04-16 22:09] VITALS: BP 110/73; PULSE 61; RESP 16; TEMP 36.6; O2SAT 100
== END 2022-04-16 22:22 | disposition home or self-care (01) ==
PROVIDERS: Emergency Provider Emergency Medicine
DX: M25.531 Pain in right wrist (principal)
CPT/HCPCS: 73110; 99283; 99284

== ENCOUNTER 2022-11-04 08:02 | Emergency (ER) | payer MEDICAID, SELFPAY ==
[2022-11-04] VITALS (8 sets, daily range): BP systolic 111–127; BP diastolic 73–93; PULSE 54–75; RESP 16; TEMP 36.9; O2SAT 97–99; BMI 33.0
--- NOTE | 2022-11-04 08:27 | XR_ITS ---
FINAL REPORT CLINICAL HISTORY: fall, distal forearm pain FINDINGS: RIGHT FOREARM 2 views of the right forearm were obtained. There is no acute fracture or dislocation. The joints are intact. There are no soft tissue abnormalities. IMPRESSION: No acute bony abnormality. Reviewed, Interpreted and Dictated by Terry Smith MD Transcribed by Faviola Becker Authenticated and [facility]
--- NOTE | 2022-11-04 08:27 | XR_ITS ---
FINAL REPORT CLINICAL HISTORY: fall, distal forearm/hand pain FINDINGS: RIGHT HAND Three views demonstrate no acute fracture or dislocation. The visualized joint spaces are normally aligned. The soft tissues are unremarkable. IMPRESSION: No acute bony abnormality. Reviewed, Interpreted and Dictated by Terry Smith MD Transcribed by Faviola Becker Authenticated and [facility]
--- NOTE | 2022-11-04 08:27 | XR_ITS ---
FINAL REPORT CLINICAL HISTORY: fall, distal forearm pain FINDINGS: RIGHT WRIST Three views demonstrate no acute fracture or dislocation. The visualized joint spaces are normally aligned. The soft tissues are unremarkable. IMPRESSION: No acute bony abnormality. Reviewed, Interpreted and Dictated by Terry Smith MD Transcribed by Faivola Becker Authenticated and [facility]
--- NOTE | 2022-11-04 08:34 | HMH.EDGENADL ---
Discharge Plan Disposition Patient Disposition: Home, Self-Care Prescriptions Prescriptions: No Action prednisone 10 mg tablet 10 mg PO BID 3 Days Qty: 6 0RF azithromycin [Zithromax] 250 mg tablet 250 mg PO UD DOSE PK Qty: 6 0RF Rx Instructions: Take two (2) tablets today, then one (1) tablet days #2 thru #5 nzjbltspdfleocu-orhukzila-TL [Bromfed DM] 2-30-10 mg/5 mL Syrup 5 ml PO Q6H PRN (Reason: Cough) Qty: 240 0RF benzonatate 100 mg Capsule 100 mg PO Q8H Qty: 14 0RF ondansetron 4 mg tablet,disintegrating 4 mg PO Q6H PRN (Reason: nausea and vomiting) Qty: 10 0RF Rx Instructions: Do not combine with other nausea medications. meloxicam 15 mg tablet 15 mg PO DAILY Qty: 10 0RF tkejkbodpuuyglw-czjusaewj-FU 118 ML syrup 5 ml PO Q6HP PRN (Reason: Cough) Qty: 240 0RF ondansetron 4 MG tablet,disintegrating 4 mg PO Q8HP PRN (Reason: Nausea) Qty: 12 0RF kzinumgfmhfzupp-pjnukunsu-BY 118 ML syrup 5 ml PO Q6HP PRN (Reason: Cough) Qty: 240 0RF ondansetron 4 MG tablet,disintegrating 4 mg PO Q8HP PRN (Reason: Nausea) Qty: 12 0RF Referrals Follow up/Referrals: Provider,Referral, MD [Primary Care Provider] - See instructions Activity Restrictions/Add. Instructions Additional Instructions/Restrictions: Call your family doctor to establish care for this visit to the emergency department and schedule follow-up within 48 hours to ensure improvement. If you have any worsening of your condition or any other concerning signs or symptoms, return to the emergency department or your primary care doctor for further evaluation. Take Tylenol 1000 mg every 6 hours (4 times daily) and ibuprofen 400 mg every 6 hours (4 times daily) as needed with food and water to prevent GI upset and kidney damage. Clinical Impressions Clinical Impression: Acute pain of right wrist, Hand pain, right Discharge ED Provider: Francisco Javier Rodriguez General Adult HPI General Chief complaint: PAIN Stated complaint: AO 11/02 right wrist pain Time Seen by Provider: 11/04/22 08:13 Mode of Arrival: Ambulatory Source of Information: Patient Limitations: No Limitations Description of Symptoms (Recalled from ER Triage Doc. by RN): 22 yo F presents to ED with c/o right wrist pain. pt had fall 2 days ago and landed on her wrist. pt did put at home brace on. 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 pt reports pressure when attemping to place her hand flat. also while pushing something. pain shoots up into arm. History of Present Illness HPI narrative: This is a 22-year-old female who is otherwise healthy presenting with right wrist pain. Patient states that she has had chronic wrist pain for months. 2 days prior to arrival, fell, has had pain in her wrist and hand since that time. States it is severe and shoots up my arm. Intermittent, shooting. Motions that it radiates from her right little finger to her right axilla. Denies numbness, weakness, tingling, any other injury, or any other concerns. No right lower extremity symptoms. Patient took medicine the night before with mild relief. Related Data Previous Rx's Medication Instructions Recorded rbybjgkdwxkvfsn-ieplqtyyuiofpka-VV 5 ml PO Q6HP PRN Cough #240 mL 02/09/21 2 mg-30 mg-10 mg/5 mL oral syrup ondansetron 4 mg disintegrating 4 mg PO Q8HP PRN Nausea #12 tabs 02/09/21 tablet gwlcetnhqbzuxrv-seogjfbsopsoqpz-DO 5 ml PO Q6HP PRN Cough #240 mL 10/04/21 2 mg-30 mg-10 mg/5 mL oral syrup ondansetron 4 mg disintegrating 4 mg PO Q8HP PRN Nausea #12 tabs 10/04/21 tablet azithromycin 250 mg tablet 250 mg PO UD DOSE PK #6 tabs 01/06/22 (Zithromax) fpigqitmbjyyzuq-nzyqcilifydxmtu-AL 5 ml PO Q6H PRN Cough #240 mL 01/06/22 2 mg-30 mg-10 mg/5 mL oral syrup (Bromfed DM) prednisone 10 mg tablet 10 mg PO BID 3 days #6 tabs 01/06/22 benzonatate 100 mg capsule 100 mg PO Q8H #14 caps 01/12/22 ondansetron 4 mg disintegrating 4 mg PO Q6H PRN nausea and 03/02/22 tablet vomiting #10
--- NOTE | 2022-11-04 08:42 | PC.NURSE ---
pt return from xray
== END 2022-11-04 11:23 | disposition home or self-care (01) ==
PROVIDERS: Emergency Provider Emergency Medicine
DX: M79.641 Pain in right hand (principal); M25.531 Pain in right wrist; W19.XXXA Unspecified fall, initial encounter
CPT/HCPCS: 73090; 73110; 73130; 99284

== ENCOUNTER 2023-04-15 07:18 | Emergency (ER) | payer SELFPAY ==
[2023-04-15 07:32] VITALS: BP 141/82; PULSE 98; RESP 14; TEMP 36.8; O2SAT 99; BMI 29.0
[2023-04-15 07:34] LABS: Influenza A, PCR Not Detected (NotDetected)
[2023-04-15] MEDS: IBUPROFEN 600 MG TABLET PO (07:37)
[2023-04-15] MEDS: ONDANSETRON 4MG ODT 4 MG SL (07:37)
[2023-04-15] MEDS: ACETAMINOPHEN 500MG TAB 1000 MG PO (07:38)
--- NOTE | 2023-04-15 07:49 | XR_ITS ---
FINAL REPORT CLINICAL HISTORY: isolated R posterior wheezes, prod cough x 4-5 days COMPARISON: 01/12/2022 FINDINGS: A single portable view of the chest was obtained. The heart size and pulmonary vascularity are within normal limits. The mediastinum is within normal limits. No acute pulmonary abnormality is identified. The bony thorax is intact. IMPRESSION: No active cardiopulmonary disease. Reviewed, Interpreted and Dictated by Ant Rodriguez III, MD Transcribed by Jenny Velasco Authenticated and [facility]
[2023-04-15 07:51] VITALS: BP 147/86; PULSE 85; O2SAT 100
[2023-04-15] MEDS: IPRATROPIUM/ALBUTEROL 3 ML NEB 6 ML IH (07:53)
[2023-04-15] MEDS: DEXAMETHASONE 4MG TABLET 10 MG PO (07:54)
--- NOTE | 2023-04-15 07:56 | ED_ITS ---
Discharge Plan Disposition Patient Disposition: Home, Self-Care Prescriptions Prescriptions: New oseltamivir [Tamiflu] 75 mg capsule 75 mg PO BID 5 Days Qty: 10 0RF dexamethasone 6 mg tablet 6 mg PO DAILY Qty: 5 0RF No Action prednisone 10 mg tablet 10 mg PO BID 3 Days Qty: 6 0RF azithromycin [Zithromax] 250 mg tablet 250 mg PO UD DOSE PK Qty: 6 0RF Rx Instructions: Take two (2) tablets today, then one (1) tablet days #2 thru #5 fsakgdmrmbhmaih-mkxekdzbk-LF [Bromfed DM] 2-30-10 mg/5 mL Syrup 5 ml PO Q6H PRN (Reason: Cough) Qty: 240 0RF benzonatate 100 mg Capsule 100 mg PO Q8H Qty: 14 0RF ondansetron 4 mg tablet,disintegrating 4 mg PO Q6H PRN (Reason: nausea and vomiting) Qty: 10 0RF Rx Instructions: Do not combine with other nausea medications. meloxicam 15 mg tablet 15 mg PO DAILY Qty: 10 0RF iqxdphupnkgrkbz-cgfqatygq-YS 118 ML syrup 5 ml PO Q6HP PRN (Reason: Cough) Qty: 240 0RF ondansetron 4 MG tablet,disintegrating 4 mg PO Q8HP PRN (Reason: Nausea) Qty: 12 0RF jgapfivuaafpfsd-aoiubbtzi-FL 118 ML syrup 5 ml PO Q6HP PRN (Reason: Cough) Qty: 240 0RF ondansetron 4 MG tablet,disintegrating 4 mg PO Q8HP PRN (Reason: Nausea) Qty: 12 0RF Referrals Follow up/Referrals: Provider,Referral, MD [Primary Care Provider] - See instructions Activity Restrictions/Add. Instructions Additional Instructions/Restrictions: Call your family doctor to establish care for this visit to the emergency department and schedule follow-up within 48 hours to ensure improvement. If you have any worsening of your condition or any other concerning signs or symptoms, return to the emergency department or your primary care doctor for further evaluation. Steroid once daily for 5 days, Tamiflu twice daily for 5 days. Take Tylenol 1000 mg every 6 hours (4 times daily) and ibuprofen 400 mg every 6 hours (4 times daily) as needed with food and water to prevent GI upset and kidney damage. Clinical Impressions Clinical Impression: COVID-19, Influenza Discharge ED Provider: Francisco Javier Rodriguez General Adult HPI General Chief complaint: Upper Respiratory Infection Stated complaint: cough congestion Time Seen by Provider: 04/15/23 07:26 Mode of Arrival: Ambulatory Source of Information: Patient Limitations: No Limitations Description of Symptoms (Recalled from ER Triage Doc. by RN): pt c/o a productive cough, fatigue, lung pain when coughing, N/V, and a TIPTON. ongoing x4d History of Present Illness HPI narrative: 22-year-old female otherwise healthy presenting with multiple complaints. Patient states that she had cold and flu symptoms just a couple days prior to t his visit approximately 4 days. No known sick contacts. Since that time, cough is gotten progressively worse. She is now coughing up yellowish-brown sputum and having posttussive emesis. Feels as if she has been fever, but now having fatigue. Related Data Previous Rx's Medication Instructions Recorded dpeahvtfiivhaph-ubuvxxlvcqmgoph-NP 5 ml PO Q6HP PRN Cough #240 mL 02/09/21 2 mg-30 mg-10 mg/5 mL oral syrup ondansetron 4 mg disintegrating 4 mg PO Q8HP PRN Nausea #12 tabs 02/09/21 tablet lsjglotuythdwtc-gtmikmaijyaqvyp-UE 5 ml PO Q6HP PRN Cough #240 mL 10/04/21 2 mg-30 mg-10 mg/5 mL oral syrup ondansetron 4 mg disintegrating 4 mg PO Q8HP PRN Nausea #12 tabs 10/04/21 tablet azithromycin 250 mg tablet 250 mg PO UD DOSE PK #6 tabs 01/06/22 (Zithromax) oaxduwsjmhmmqud-cevoigktaqskmel-FD 5 ml PO Q6H PRN Cough #240 mL 01/06/22 2 mg-30 mg-10 mg/5 mL oral syrup (Bromfed DM) prednisone 10 mg tablet 10 mg PO BID 3 days #6 tabs 01/06/22 benzonatate 100 mg capsule 100 mg PO Q8H #14 caps 01/12/22 ondansetron 4 mg disintegrating 4 mg PO Q6H PRN nausea and 03/02/22 tablet vomiting #10 tabs meloxicam 15 mg tablet 15 mg PO DAILY #10 tabs 04/16/22 dexamethasone 6 mg tablet 6 mg PO DAILY #5 tabs 04/15/23 oseltamivir 75 mg capsule (Tamiflu) 75 mg PO BID 5 days #10 caps 04/15/23 Allergies Allergy/AdvReac Type Severity Reaction Status Date / Time No Known Allergies Allergy Verified 04/15/23 07:36 [facility] Disclaimer: The information contained in this section may have been updated after the patient was seen, as this information can be updated by other users. Social History Smoking Status: Never smoker alcohol intake: never substance use type: denies use current occupational status: other Travel in the last 8 weeks: None household members: family housing: house ROS Obtained: Yes All systems reviewed & no additional complaints except as documented Physical Exam General General appearance: alert and in no apparent distress Head Head exam: atraumatic and normocephalic Eye Eye exam: Present normal appearance, PERRL and EOMI ENT ENT exam: Present mucous membranes moist Neck Neck exam: Present normal inspection, full ROM and trachea midline Respiratory Respiratory exam: Present wheezes (Isolated right inferior lung angel posteriorly); Absent respiratory distress, stridor, accessory muscle use or prolonged expiratory phase Cardiovascular Cardiovascular exam: Present regular rate and normal rhythm Abdominal Exam Abdominal exam: Present soft; Absent distention, tenderness, guarding, rebound or rigidity Extremities Exam Extremities exam: Absent edema Neurological Exam Neurological exam: Present alert, oriented X3, CN II-XII intact and normal gait; Absent motor sensory deficit Skin Skin exam: Present warm and dry; Absent diaphoresis or erythema Medical Decision Making Medical Records Medical records reviewed: Yes I reviewed the patient's medical records. Tadeo Inquiry Pt receiving controlled substance: No Tadeo was queried for this patient: No Vital Signs: 04/15/23 07:32 04/15/23 07:51 04/15/23 08:01 Temperature 98.3 F Temperature Source Oral Pulse Rate 85 75 Pulse Rate [Left] 98 H Respiratory Rate 14 Blood Pressure 147/86 H 120/78 Blood Pressure [Right Arm] 141/82 H Blood Pressure Mean [Right Arm] 101 Blood Pressure Source [Right Arm] Automatic Cuff Blood Pressure Position [Right Arm] Sitting 02 Sat by Pulse Oximetry 99 100 100 Oxygen Delivery Method Room Air Room Air Room Air 04/15/23 08:20 04/15/23 08:30 Temperature Temperature Source Pulse Rate 91 H 89 Pulse Rate [Left] Respiratory Rate Blood Pressure 134/87 128/86 Blood Pressure [Right Arm] Blood Pressure Mean [Right Arm] Blood Pressure Source [Right Arm] Blood Pressure Position [Right Arm] 02 Sat by Pulse Oximetry 98 98 Oxygen Delivery Method Room Air Room Air Lab Data Lab Results 04/15/23 07:27: SARS-CoV-2 (PCR) Detected A, Influenza A Untype (PCR) Not detected, Influenza Type B (PCR) Detected A Orders (Tests/Meds): ED MEDICATIONS Discontinued Medications Generic Name Dose Route Start Last Admin Trade Name Mjq PRN Reason Stop Dose Admin Acetaminophen 1,000 mg 04/15/23 07:30 04/15/23 07:38 Acetaminophen 500mg Tab PO 04/15/23 07:31 1,000 mg ONCE ONE Administration Albuterol/Ipratropium 6 ml 04/15/23 07:49 04/15/23 07:53 Ipratropium/Albuterol 3 Ml Neb IH 04/15/23 07:50 6 ml ONCE ONE Administration Dexamethasone 10 mg 04/15/23 07:49 04/15/23 07:54 Dexamethasone 4mg Tablet PO 04/15/23 07:50 10 mg ONCE ONE Administration Ibuprofen 600 mg 04/15/23 07:30 04/15/23 07:37 Ibuprofen 600 Mg Tablet PO 04/15/23 07:31 600 mg ONCE ONE Administration Ondansetron HCl 4 mg 04/15/23 07:30 04/15/23 07:37 Ondansetron 4mg Odt SL 04/15/23 07:31 4 mg ONCE ONE Administration ORDERS Category Date Time Status CXR --portable [XR chest portable] Stat Exams 04/15/23 07:49 Taken Rapid PCR Covid and Flu A/B Stat Lab 04/15/23 07:27 Completed Medical Decision Narrative: 22-year-old female otherwise healthy presenting with multiple complaints. Patient states that she had cold and flu symptoms just a couple days prior to this visit approximately 4 days. No known sick contacts. Since that time, cough is gotten progressively worse. She is now coughing up yellowish-brown sputum and having posttussive emesis. Feels as if she has been fever, but now having fatigue. History was obtained via conversation with patient. On arrival, patient hemodynamically stable, alert, oriented x4, appropriate, GCS 15, moving all extremities spontaneously, pupils equal and reactive to light. Full physical exam performed and significant for very well-appearing, no acute distress. Afebrile, nontachycardic, normotensive. Appropriately interactive lungs with good air movement bilaterally, but isolated wheezes in the posterior/inferior lung angel, right. Patient intermittently coughing. No lymphadenopathy. Differential includes bronchitis, viral pneumonia, bacterial pneumonia, reactive airway disease, among others. Patient was given DuoNeb, Solu-Medrol for symptomatic management and correction of underlying abnormalities. Workup independently interpreted and significant for COVID and flu positivity. No evidence of pneumonia on chest x-ray. See radiology read for full review of final results. On reevaluation, patient still coughing, but breathing easier. Given patient presentation, workup, history, this most likely represents multiple viral processes at once. Because patient at baseline without signs or symptoms of clinical decompensation, deemed appropriate for discharge. Results were relayed to patient who voiced understanding and were agreeable to outpatient management and follow up. At the time of discharge the patient was hemodynamically stable, tolerating PO, and mobilizing appropriately. Critical Care Critical Care Time Critical Care Time: No
[2023-04-15 08:01] VITALS: BP 120/78; PULSE 75; O2SAT 100
[2023-04-15 08:20] VITALS: BP 134/87; PULSE 91; O2SAT 98
[2023-04-15 08:30] VITALS: BP 128/86; PULSE 89; O2SAT 98
[2023-04-15 09:04] LABS: Coronavirus 19, PCR Detected (NotDetected); Influenza B, PCR Detected (NotDetected)
[2023-04-15 09:21] VITALS: BP 128/86; PULSE 87; RESP 16; TEMP 36.8; O2SAT 99
== END 2023-04-15 09:41 | disposition home or self-care (01) ==
PROVIDERS: Emergency Provider Emergency Medicine
DX: U07.1 COVID-19 (principal); J10.1 Influenza due to other identified influenza virus with other respiratory manifestations; J10.2 Influenza due to other identified influenza virus with gastrointestinal manifestations; R05.9 Cough, unspecified; R53.83 Other fatigue; R07.81 Pleurodynia; R11.2 Nausea with vomiting, unspecified; R51.9 Headache, unspecified
CPT/HCPCS: 71045; 87636; 99283

== ENCOUNTER 2024-05-16 04:12 | Emergency (ER) | payer SELFPAY ==
[2024-05-16 04:19] VITALS: BP 144/92; PULSE 109; RESP 16; TEMP 36.8; O2SAT 96; BMI 28.3
--- NOTE | 2024-05-16 04:21 | XR_ITS ---
PROCEDURE INFORMATION: Exam: XR Chest Exam date and time: 05/16/2024 4:21 AM Age: 23 years old Clinical indication: Cough TECHNIQUE: Imaging protocol: Radiologic exam of the chest. Views: 2 views. COMPARISON: CR XR CHEST PORTABLE 04/15/2023 8:32 AM FINDINGS: Lungs: Unremarkable. No consolidation. Pleural spaces: Unremarkable. No pleural effusion. No pneumothorax. Heart/Mediastinum: Unremarkable. No cardiomegaly. Bones/joints: Unremarkable. IMPRESSION: No acute findings.
--- NOTE | 2024-05-16 04:22 | ED_ITS ---
Discharge Plan Disposition Patient Disposition: Home, Self-Care Condition: Good Prescriptions Prescriptions: New guaifenesin 400 mg tablet 400 mg PO TID PRN (Reason: cough) Qty: 10 0RF Referrals Follow up/Referrals: Provider,Referral, MD [Primary Care Provider] - See instructions Activity Restrictions/Add. Instructions Additional Instructions/Restrictions: You were evaluated in the ER and are appropriate for discharge at this time. Take the prescribed guaifenesin if needed to help with cough. Drink plenty of fluids including water, Gatorade, Pedialyte. Follow-up the results of the viral swab and the patient portal. Please make an appointment with your primary care doctor for reevaluation in a few days. Return to the ER with new, worsening, or otherwise concerning symptoms Clinical Impressions Clinical Impression: Cough Print Language Print Language: Yi Discharge ED Provider: Russ Pa General Adult HPI General Chief complaint: Upper Respiratory Infection Stated complaint: flu symptoms Time Seen by Provider: 05/16/24 04:17 Mode of Arrival: Ambulatory Source of Information: Patient Description of Symptoms (Recalled from ER Triage Doc. by RN): pt presents with cough x2 weeks with associated runny nose and intermittent hot flashes. History of Present Illness HPI narrative: 23-year-old female who reports being otherwise healthy, no daily medications, no known drug allergies presents to the ER with complaints of cough. Patient reports she was sick approximately 2 weeks ago with upper respiratory infection like a cold and thought she was getting better but her cough continues to be persistent. She states it is only mildly productive. She has no chest pain or difficulty breathing. She states sometimes she coughs hard enough that she gags. She is not having any abdominal pain, vomiting, diarrhea, headaches, dizziness, numbness, tingling, weakness. No documented fevers. Patient reports she never got tested for what her cold may have been. She suspected it may have been flu since that was going around. She has been using Ricola cough drops. ROS otherwise negative Related Data Previous Rx's ?Medication ?Instructions ?Recorded guaifenesin 400 mg tablet 400 mg PO TID PRN cough #10 tabs 05/16/24 Allergies Allergy/AdvReac Type Severity Reaction Status Date / Time No Known Allergies Allergy Verified 04/15/23 07:36 [facility] Disclaimer: The information contained in this section may have been updated after the patient was seen, as this information can be updated by other users. Social History Smoking Status: Current every day smoker tobacco type: smokeless tobacco alcohol intake: never substance use type: denies use current occupational status: other Travel in the last 8 weeks: None household members: family housing: house Have you lived/traveled outside [place] in past 30 days?: No Contact w/someone who lives/traveled outside [place] past 30 days?: No Exposure to someone with infectious disease in past 14 days?: No Do you have a fever (greater than 100.4 F or 38 C)?: No Have you tested positive for COVID-19: No Exposed to someone with COVID-19 in past 14 days?: No Do you have a sore throat?: No Do you have a cough?: Yes Do you have any weakness?: No Do you have any diarrhea?: No Are you experiencing any unusual bleeding?: No Do you have any muscle aches/pain?: No Do you have any abdominal pain?: No Are you experiencing loss of taste or smell?: No Other Medical History Have you received the Flu Vaccine for this season: No Have you received the Pneumonia Vaccine: No ROS Obtained: Yes Systems reviewed as appropriate & no additional complaints except as documented Per HPI Physical Exam General General appearance: alert and in no apparent distress Head Head exam: atraumatic and normocephalic Eye Eye exam: Present PERRL and EOMI ENT ENT exam: Present mucous membranes moist Neck Neck exam: Present normal inspection and full ROM Chest Chest inspection: Present symmetric chest wall rise Respiratory Respiratory exam: Present normal lung sounds bilaterally and other (Saturating 100% on room air); Absent respiratory distress, wheezes or stridor Cardiovascular Cardiovascular exam: Present regular rate and normal rhythm Abdominal Exam Abdominal exam: Present soft; Absent distention or tenderness Extremities Exam Extremities exam: Present full ROM; Absent edema Neurological Exam Neurological exam: Present alert and oriented X3; Absent motor sensory deficit Psychiatric Psychiatric exam: Present normal affect and normal mood Skin Skin exam: Present warm and dry Medical Decision Making Medical Records Medical records reviewed: Yes I reviewed the patient's medical records. Screening: Per USPSTF and CDC recommendations, given the prevalence of disease in our region, it is our hospital?s policy to screen for HIV and viral Hepatitis for all patients aged 18 and over and those with ongoing risk factors. Comment: Review of records demonstrates patient was positive for COVID and influenza B at the beginning of April. Tadeo Inquiry Pt receiving controlled substance: No Vital Signs: 05/16/24 04:19 Temperature 98.3 F Temperature Source Oral Pulse Rate [Radial] 109 H Respiratory Rate 16 Blood Pressure [Right Arm] 144/92 H Blood Pressure Mean [Right Arm] 109 Blood Pressure Position [Right Arm] Sitting 02 Sat by Pulse Oximetry 96 Oxygen Delivery Method Room Air Orders (Tests/Meds): ORDERS Category Date Time Status CXR 2 view (NOT portable) [XR chest 2V] Stat Exams 05/16/24 04:21 Taken Rapid PCR Covid and Flu A/B Stat Lab 05/16/24 04:17 Received Medical Decision Narrative: In summary, this otherwise healthy 23-year-old female presents to the emergency department today with persistent cough. On initial evaluation patient is hemodynamically stable, tachycardia that was present on arrival and already spontaneously resolved during my exam and was in the 80s. She is afebrile, saturating well on room air, lungs clear bilaterally with good air movement and no adventitious sounds, patient has a dry, hacking cough during exam but no other abnormalities. Differential diagnosis includes but is not limited to viral syndrome, postviral cough, also considered the possibility of pneumonia, bronchitis. Based on these concerns, I ordered viral swab, chest x-ray. Patient reports no chance of being , abdomen was shielded with lead for x-ray. Chest x-ray personally interpreted demonstrates no lobar infiltrate or other obvious acute abnormality. Radiology read is still pending but based on patient's reassuring vitals, symptoms, and x-ray I believe she is appropriate for discharge at this time. I prescribed guaifenesin for outpatient management of cough and help with expectoration. 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 Patient was given instructions on symptomatic management, follow up instructions, and return precautions for the emergency department. Patient indicated understanding and was discharged in stable condition. Critical Care Critical Care Time Critical Care Time: No
[2024-05-16 04:35] LABS: Coronavirus 19, PCR Not Detected (NotDetected); Influenza A, PCR Not Detected (NotDetected); Influenza B, PCR Not Detected (NotDetected)
[2024-05-16 04:41] VITALS: BP 124/62; PULSE 98; RESP 14; TEMP 36.6; O2SAT 100
== END 2024-05-16 04:42 | disposition home or self-care (01) ==
PROVIDERS: Emergency Provider Emergency Medicine
DX: R05.9 Cough, unspecified (principal)
CPT/HCPCS: 71046; 87636; 99283